=== PATIENT | female | born 1965 | race Hispanic/Latino ===

== ENCOUNTER → 2017-12-31 | Outpatient (CLI) | payer BC ==
[~2017-12-31] MED LIST: DULO60CA44 PO; FLUT1DIS4 PUFF; GABA-531 PO; LEVO50TA6 PO; MELO-106 PO; MONT10TA21 PO; TRAM50TA4 PO; TRAZ-185 PO
== END | disposition home or self-care (01) ==
LOC: OIH 16:37
PROVIDERS: ATTEND Family Medicine
DX: J45.909 Unspecified asthma, uncomplicated (principal)
CPT/HCPCS: 71046